=== PATIENT | male | born 1965 | race Caucasian/White ===

== ENCOUNTER 2017-10-23 10:11 | Emergency (ER) | payer OTHER ==
[2017-10-23 10:22] VITALS: BP 139/77; PULSE 89; TEMP 98.2; BMI 32.7
--- NOTE | 2017-10-23 10:37 | PDOC ---
Suture Removal/Wound Check HPI - History of Present Illness Chief Complaint: Revisit,Wound Recheck Stated Complaint: REVISIT, FOLLOW UP Time Seen by Provider: 10/23/17 10:28 History Source: Yes: Patient Treated at: [facility] ED (10/21/17) Date of Last ED visit: 10/21/17 - Previous ED Treatment Type of procedure performed on last visit: Yes: Burn Dressing Past History - Past Medical History Allergies/Adverse Reactions: Allergies Allergy/AdvReac Type Severity Reaction Status Date / Time No Known Allergies Allergy Verified 10/23/17 10:17 Home Medications: Ambulatory Orders Amoxicillin - [Amoxicillin 500mg Capsule -] 500 mg PO BID 10/21/17 Ibuprofen [Motrin -] 600 mg PO TID #30 tablet 10/21/17 Silver Sulfadiazine [Silvadene] 50 gm TP BID #1 cream..g. 10/21/17 COPD: No - Surgical History Abdominal Surgery: Yes (hernia repair) - Suicide/Smoking/Psychosocial Hx Smoking History: Current some day smoker Number of Cigarettes Smoked Daily: 5 Information on smoking cessation initiated: Yes Hx Alcohol Use: No Drug/Substance Use Hx: No Substance Use Type: None Suture Removal/Wound Check PE - Physical Exam Laceration/Wound Check Symptoms: reports: None, Improved Comments: 10/23/17 10:47 left hand third digit burn seen on 10/21/17 here for wound recheck pt states pain has improved and is applying the cream twice a day as instructed Current Severity Level: None Maximum Severity Level: None Pain Localization: None Location of Laceration/Wound: left: Finger (third digit with healing burn to the volar side of the finger ) *Physical Exam - Vital Signs Last Vital Signs Temp Pulse Resp BP Pulse Ox 98.2 F 89 16 139/77 99 10/23/17 10:19 10/23/17 10:19 10/23/17 10:19 10/23/17 10:19 10/23/17 10:19 - Physical Exam General Appearance: Yes: Nourished, Appropriately Dressed Extremity: positive: Normal Capillary Refill, Normal Range of Motion (FROM nv intact no redness no streaking no swelling to digit) Integumentary: positive: Normal Color, Dry, Warm Medical Decision Making - Medical Decision Making 10/23/17 10:50 survey manager used pt states finger is feeling much better and is asking to go back to work will give note to return in 2 days follow up with hand specialist as needed if symptoms get worse *DC/Admit/Observation/Transfer Diagnosis at time of Disposition: Visit for wound check - Discharge Dispostion Disposition: HOME Condition at time of disposition: Good - Referrals Referrals: Chris Lim MD [Staff Physician] - Rodolfo Schmidt [Non Staff, Medical] - - Patient Instructions Printed Discharge Instructions: How to Take Care of a Burn Additional Instructions: please follow with in his office call today to make appointment for follow up apply cream in morning and at night and keep covered while working and with sleeping let the wound air out if you are not using hands to work por favor, siga con or en prieto visita a la oficina hoy para hacer dorene marily para el seguimiento aplique crema por la maana y por la noche y mantngase cubierto mientras trabaja y mientras duerme iban que la herida se ventile si no ests usando las aleah para trabajar Rodolfo Schmidt MD Hand Surgery, Orthopaedic Surgery [facility] [address] [facility] [address] [place] [address] Print Language: BRITISH - Post Discharge Activity Forms/Work/School Notes: Back to Work
== END 2017-10-23 10:58 | disposition home or self-care (01) ==
LOC: JERFT 10:11
DX: Z48.00 Encounter for change or removal of nonsurgical wound dressing (principal)
CPT/HCPCS: 99281-25